=== PATIENT | male | born 1950 | race Caucasian/White ===

== ENCOUNTER 2019-11-12 11:39 | Day surgery (SDC) | payer MEDICARE, BC ==
[2019-11-12] VITALS (9 sets, daily range): BP systolic 117–146; BP diastolic 71–83; PULSE 50–78; TEMP 97.7–98.1
[~2019-11-12] VITALS: Ht 193 cm; Wt 100.3 kg
[~2019-11-12 11:39] MED LIST: ASPIRIN E.C. 8181 MG PO; BP MED PO; PRILOSEC 20MG20 MG PO
[2019-11-12] MEDS ORDERED: SMZ/TMPDS PO (12:29)
[2019-11-12] MEDS ORDERED: PROSCAR 5MG5 MG PO (12:30)
[2019-11-12] MEDS ORDERED: TIAZAC300 MG PO (12:32)
[2019-11-12] MEDS ORDERED: KEPPRA 500MG500 MG PO (12:32)
[2019-11-12] MEDS ORDERED: VITAMIN D250 MCG PO (12:34)
[2019-11-12] MEDS ORDERED: MULTI VITAMINS1 TAB PO (12:35)
--- NOTE | 2019-11-12 12:36 | NUR ---
TO RM AT 1146- CALL LIGHT IN REACH AT BEDSIDE.
--- NOTE | 2019-11-12 18:29 | NUR ---
Patient resting in bed. at bedside. Patient to room 324 post op. Report from Elvira GRIFFITH. CBI slowed & to moderate rate. [place] tinged output. Vss on O2. Dinner tray ordered. Ivf per orders. Will report off to night nurse
--- NOTE | 2019-11-12 19:34 | NUR ---
patient drinking well, fluids capped at this time
--- NOTE | 2019-11-12 21:00 | NUR ---
Patient takes HS meds without problem. Complains of stinging to tip of penis, cath care given. Slowed CBI, urine is light pink to yellow in tubing. SL to left forearm without redness or swelling. Spouse staying the night.
[2019-11-13] VITALS (7 sets, daily range): BP systolic 103–133; BP diastolic 60–83; PULSE 63–91; TEMP 97.5–98.2
--- NOTE | 2019-11-13 05:04 | NUR ---
CBI continues, urine light pink in tubing. Patient taking oral fluids well.
--- NOTE | 2019-11-13 07:00 | NUR ---
Report received from GLADIS Dumont. PT in bed resting, denies needs, will continue to monitor.
--- NOTE | 2019-11-13 09:00 | NUR ---
ASsessment charted. Pt has some soreness at catheter insertion site, removed 4x4 per [place] and pt states it does feel better. Resting in bed with CBI at slow flow rate, some small clots in tubing but otherwise pink and clear. Denies needs, checked temp as pt is flushed but it was 97.6. Will continue to monitor.
--- NOTE | 2019-11-13 12:33 | NUR ---
Environmental Research Scientist offered prayer and support with patient while spouse was in room.
--- NOTE | 2019-11-13 18:29 | NUR ---
Pt has done well today. Up to shower, up ambulating, denies pain, states he will sleep well tonight, denies needs, will give bedside shift report to nightshift nurse who will resume care.
--- NOTE | 2019-11-13 21:00 | NUR ---
Disconnected patient from CBI, urine is yellow. Did educate patient of the procedure for the AM of priming and pulling his fink catheter. Verbalizes understanding. Pt takes HS meds and is ready for sleep. at bedside. SL to left FA without redness or swelling.
[2019-11-14 03:49] VITALS: BP 144/76; PULSE 67; TEMP 98.1
--- NOTE | 2019-11-14 06:10 | NUR ---
PRIMED CATHETER WITH 250CC OF NS, DEFLATED BULB AND PULLED OKEEFE CATHETER WITHOUT PROBLEM. INSTRUCTED ON 6 BOTTLE ROUTINE AND PLACED URINAL IN BATHROOM.
--- NOTE | 2019-11-14 06:30 | NUR ---
First void completed, marquez red in color.
[2019-11-14 07:39] VITALS: BP 121/70; PULSE 73; TEMP 97.5
--- NOTE | 2019-11-14 08:59 | NUR ---
Lying in bed with eyes open. Denies pain, just says that he has tenderness in the lower abd area. Doing six cup routine at this time. Is on cup four, urine clear, marquez red color, no clots noted. Patient says that he is able to empty his bladder without issues. at bedside. Provided reassurance. Denies further needs at this time.
[2019-11-14 11:33] VITALS: BP 120/82; PULSE 103; TEMP 97.4
--- NOTE | 2019-11-14 12:24 | NUR ---
IV site to left forearm discontinued with catheter intact. Applied 2x2 to site and reinforced with coban. Reviewed discharge instructions with the patient and his . All documents signed and copies provided to the patient. Patient will get dressed at this time and will notify staff when ready to be escorted out.
--- NOTE | 2019-11-14 13:45 | NUR ---
Patient escorted out to personal vehicle by [facility] staff. Voiced understanding to all discharge instructions and denied further concerns or needs at this time.
== END 2019-11-14 13:45 | disposition home or self-care (01) ==
LOC: SDCO 11:39 → SURG 17:21 → SDCO 11-14 13:45
DX: R31.0 Gross hematuria (principal); N40.1 Benign prostatic hyperplasia with lower urinary tract symptoms; Z87.891 Personal history of nicotine dependence; N13.8 Other obstructive and reflux uropathy; I10 Essential (primary) hypertension; K21.9 Gastro-esophageal reflux disease without esophagitis; Z79.899 Other long term (current) drug therapy; Z79.82 Long term (current) use of aspirin; R56.9 Unspecified convulsions
CPT/HCPCS: OP; J0360; J0690; J1100; J1170; J2175; J2405; J2704; J3010; J7120